=== PATIENT | male | born 1985 | race African-American/Black ===

== ENCOUNTER 2018-10-21 20:46 | Emergency (ER) | payer SELFPAY | END 2018-10-21 21:45 | disposition left against medical advice (07) | LOC: ERS 20:46 | DX: Z53.21 Procedure and treatment not carried out due to patient leaving prior to being seen by health care provider (principal) ==

== ENCOUNTER 2021-10-14 17:29 | Emergency (ER) | payer SELFPAY | END 2021-10-14 18:46 | disposition home or self-care (01) | LOC: ERS 17:29 | DX: M25.521 Pain in right elbow (principal); V89.2XXA Person injured in unspecified motor-vehicle accident, traffic, initial encounter | CPT/HCPCS: 99283 ==

== ENCOUNTER 2024-04-11 04:28 | Emergency (ER) | payer SELFPAY ==
[2024-04-11] MEDS ORDERED: Fluorescein Opthalmic Strip ONE ×2 (04:40→04:49)
[2024-04-11] MEDS ORDERED: Proparacaine 0.5% Opth 15 ML BOT ONE (04:43)
[2024-04-11] MEDS ORDERED: Ibuprofen 800 MG TAB ONE (04:51)
== END 2024-04-11 05:21 | disposition home or self-care (01) ==
LOC: ERS 04:28
DX: S05.01XA Injury of conjunctiva and corneal abrasion without foreign body, right eye, initial encounter (principal); H00.011 Hordeolum externum right upper eyelid; X58.XXXA Exposure to other specified factors, initial encounter
CPT/HCPCS: 99283

== ENCOUNTER 2025-05-30 22:23 | Emergency (ER) | payer SELFPAY ==
[2025-05-31] MEDS ORDERED: Ibuprofen 600 MG TAB ONE (00:55)
== END 2025-05-31 01:00 | disposition home or self-care (01) ==
LOC: ERS 22:23
DX: J06.9 Acute upper respiratory infection, unspecified (principal)
CPT/HCPCS: 87428; 99283

== ENCOUNTER 2025-10-04 17:20 | Emergency (ER) | payer SELFPAY ==
[2025-10-04] MEDS ORDERED: Ondansetron PF 4 MG/2 ML Vial ONE (17:48)
[2025-10-04 17:52] LABS: #Basophils 0.03 10x3/uL (0.0-0.2); #Eosinophils 0.03 10x3/uL (0.0-0.7); #Monocytes 0.57 10x3/uL (0.11-0.59); #Neutrophils 4.51 10x3/uL (1.40-6.50); %Basophils 0.4 % (0.0-1.0); %Eosinophils 0.4 % (0.0-10.0); %Lymphocytes 29.7 % (21.0-51.0); %Monocytes 7.8 % (0.0-10.0); %Neutrophils 61.3 % (42.0-75.0); Hematocrit 47.6 % (42.0-52.0); Hemoglobin 16.3 g/dL (14.0-18.0); Mean Corpuscular Hemoglobin 30.0 pg (27.0-31.0); Mean Corpuscular Volume 87.5 fL (78.0-98.0); Platelet Count 278 10x3/uL (130-400); Red Blood Cell (RBC) Count 5.44 mill/uL (4.70-6.10); White Blood Cell (WBC) Count 7.35 10x3/uL (4.8-10.8)
[2025-10-04 18:35] LABS: Lipase 20 U/L (8-78)
[2025-10-04 18:38] LABS: Acetaminophen Less than 10 mcg/mL (Less than 10); Salicylate Less than 8.0 mg/dL (Less than 8.0)
[2025-10-04 18:40] LABS: ALT (SGPT) 11 U/L (Less than 45); AST (SGOT) 34 U/L (11-34); Albumin 4.5 g/dL (3.1-4.5); Alkaline Phosphatase 70 U/L (40-110); Anion Gap 14 mmol/L (10-20); BUN (Urea Nitrogen) 9 mg/dL (8.9-20.6); Bilirubin, Total 0.6 mg/dL (0.3-1.2); Calc. Creatinine Clearance 0 mL/min (70-130); Calcium 9.3 mg/dL (7.8-10.44); Carbon Dioxide 24 mmol/L (22-29); Chloride 107 mmol/L (98-107); Globulin 3.5 g/dL (2.4-3.5); Glucose 94 mg/dL (70-105); Potassium 4.6 mmol/L (3.5-5.1); Sodium 140 mmol/L (136-145)
== END 2025-10-04 19:00 | disposition home or self-care (01) ==
LOC: ERS 17:20
DX: S22.42XA Multiple fractures of ribs, left side, initial encounter for closed fracture (principal); F17.210 Nicotine dependence, cigarettes, uncomplicated; V49.9XXA Car occupant (driver) (passenger) injured in unspecified traffic accident, initial encounter
CPT/HCPCS: 70450; 71260; 72125; 74177; 80053; 80307; 83690; 84484; 85025; 93005; 96374; 96375; J2270; J2405